=== PATIENT | male | born 1955 | race Caucasian/White ===

== ENCOUNTER 2018-02-15 18:36 | Inpatient (IN) | payer SELFPAY ==
[~2018-02-15] VITALS: Ht 175.3 cm; Wt 193.7 kg
[2018-02-15] MEDS ORDERED: LEVEMIR100 U/M1 SC (22:02)
[2018-02-15 22:54] LABS: HEMATOCRIT 27.1 % (42.0-54.0)
[2018-02-15 23:00] LABS: HEMOGLOBIN 7.3 g/dL (13.5-17.5)
[2018-02-16 00:51] VITALS: BP 215/101; BMI 48.1; BMI 63.2
[2018-02-16 04:30] VITALS: BP 150/65
[2018-02-16 12:36] LABS: BASOPHILS 0.3 % (0-2); EOSINOPHILS 0.7 % (0-7); IMMATURE GRANULOCYTES 0.9 % (0-5); LYMPHOCYTES 7.8 % (15-50); MCH 21.4 pg (26.0-34.0); MCHC 27.5 g/dL (31.0-37.0); MCV 77.7 fL (80.0-100.0); MEAN PLATELET VOLUME 9.8 fL (7.4-10.4); MONOCYTES 6.3 % (2-11); PLATELET COUNT 363 10x3/uL (130-400); RBC 4.21 10x6/uL (4.20-6.10); WBC 15.2 10x3/uL (4.8-10.8)
[2018-02-16 12:37] LABS: HEMATOCRIT 32.7 % (42.0-54.0)
[2018-02-16 13:07] LABS: ALBUMIN 2.8 g/dL (3.4-5.0); ALKALINE PHOSPHATASE 86 U/L (46-116); ALT (SGPT) 8 U/L (10-68); BILIRUBIN - TOTAL 0.42 mg/dL (0.2-1.3); CALC OSMOLALITY 280 mosm/kg (275-300); CALCIUM 8.4 mg/dL (8.5-10.1); CARBON DIOXIDE 30.9 mmol/L (21.0-32.0); CHLORIDE - SERUM 104 mmol/L (98-107); CREATININE - SERUM 0.7 mg/dL (0.6-1.3); FERRITIN 8 ng/mL (3-244); GLUCOSE 137 mg/dL (74-106); PROTEIN - SERUM 6.4 g/dL (6.4-8.2); SODIUM 139 mmol/L (136-145); UREA NITROGEN 14 mg/dL (7-18); eGFR NON AFRICAN AMERICAN > 90 mL/min (90-120)
[2018-02-16 13:17] LABS: APTT 26.7 SECONDS (22.8-39.4); INR 1.13 (0.85-1.17); PROTIME 14.1 SECONDS (11.6-15.0)
[2018-02-16 13:32] VITALS: BP 177/80
[2018-02-16 14:34] VITALS: BMI 63.0
[2018-02-16 15:32] VITALS: Ht 175.3 cm; Wt 193.7 kg
[2018-02-16 18:27] LABS: % SATURATION 11 % (15-55); IRON 34 ug/dl (35-150); TOTAL IRON BIND CAPACITY 295 ug/dl (260-445); UNSAT IRON BIND CAPACITY 261 ug/dl (150-375)
[2018-02-16 18:59] VITALS: BP 214/89
[2018-02-16 20:07] VITALS: BP 194/94
[2018-02-17 04:25] VITALS: BP 243/102
[2018-02-17 06:20] LABS: BASOPHILS 0.3 % (0-2); EOSINOPHILS 0.5 % (0-7); HEMATOCRIT 34.2 % (42.0-54.0); HEMOGLOBIN 9.5 g/dL (13.5-17.5); IMMATURE GRANULOCYTES 0.7 % (0-5); LYMPHOCYTES 7.8 % (15-50); MCH 21.4 pg (26.0-34.0); MCHC 27.8 g/dL (31.0-37.0); MEAN PLATELET VOLUME 10.4 fL (7.4-10.4); MONOCYTES 6.8 % (2-11); NEUTROPHILS 83.9 % (40-80); PLATELET COUNT 403 10x3/uL (130-400); RBC 4.44 10x6/uL (4.20-6.10); WBC 15.7 10x3/uL (4.8-10.8)
[2018-02-17 06:53] LABS: AMYLASE - SERUM 21 U/L (25-115); CALCIUM 8.5 mg/dL (8.5-10.1); CARBON DIOXIDE 30.5 mmol/L (21.0-32.0); CHLORIDE - SERUM 102 mmol/L (98-107); CREATININE - SERUM 0.8 mg/dL (0.6-1.3); LIPASE 81 U/L (73-393); POTASSIUM - SERUM 3.8 mmol/L (3.5-5.1); SODIUM 139 mmol/L (136-145); eGFR NON AFRICAN AMERICAN > 90 mL/min (90-120)
[2018-02-17 06:56] LABS: CALC OSMOLALITY 281 mosm/kg (275-300); GLUCOSE 192 mg/dL (74-106); UREA NITROGEN 9 mg/dL (7-18)
[2018-02-17 08:59] VITALS: BP 189/91
[2018-02-17 16:15] VITALS: BP 193/94
[2018-02-17 19:56] VITALS: BP 186/94
[2018-02-18 04:30] VITALS: BP 208/88
[2018-02-18 06:21] LABS: BASOPHILS 0.2 % (0-2); EOSINOPHILS 0.6 % (0-7); HEMATOCRIT 32.9 % (42.0-54.0); IMMATURE GRANULOCYTES 1.4 % (0-5); LYMPHOCYTES 7.1 % (15-50); MCH 21.5 pg (26.0-34.0); MCHC 27.4 g/dL (31.0-37.0); MCV 78.5 fL (80.0-100.0); MEAN PLATELET VOLUME 10.4 fL (7.4-10.4); MONOCYTES 6.2 % (2-11); NEUTROPHILS 84.5 % (40-80); PLATELET COUNT 368 10x3/uL (130-400); RBC 4.19 10x6/uL (4.20-6.10); RDW 16.4 % (11.5-14.5); WBC 17.7 10x3/uL (4.8-10.8)
[2018-02-18 06:35] LABS: CALC OSMOLALITY 284 mosm/kg (275-300); CALCIUM 8.3 mg/dL (8.5-10.1); CARBON DIOXIDE 31.7 mmol/L (21.0-32.0); CHLORIDE - SERUM 103 mmol/L (98-107); CREATININE - SERUM 0.6 mg/dL (0.6-1.3); LIPASE 56 U/L (73-393); POTASSIUM - SERUM 4.3 mmol/L (3.5-5.1); SODIUM 143 mmol/L (136-145); UREA NITROGEN 7 mg/dL (7-18); eGFR NON AFRICAN AMERICAN > 90 mL/min (90-120)
[2018-02-18 06:50] LABS: GLUCOSE 131 mg/dL (74-106)
[2018-02-18 09:52] VITALS: BP 165/99
[2018-02-18 13:27] VITALS: BP 157/89
[2018-02-18 18:09] VITALS: BP 170/77
[2018-02-18 21:12] VITALS: BP 161/88
[2018-02-19 04:01] VITALS: BP 198/86
[2018-02-19 07:26] LABS: BASOPHILS 0.1 % (0-2); EOSINOPHILS 1.9 % (0-7); HEMATOCRIT 31.7 % (42.0-54.0); HEMOGLOBIN 8.6 g/dL (13.5-17.5); IMMATURE GRANULOCYTES 1.3 % (0-5); LYMPHOCYTES 7.1 % (15-50); MCH 21.2 pg (26.0-34.0); MCHC 27.1 g/dL (31.0-37.0); MCV 78.3 fL (80.0-100.0); MEAN PLATELET VOLUME 10.2 fL (7.4-10.4); MONOCYTES 7.7 % (2-11); NEUTROPHILS 81.9 % (40-80); PLATELET COUNT 369 10x3/uL (130-400); RBC 4.05 10x6/uL (4.20-6.10); RDW 16.9 % (11.5-14.5); WBC 16.3 10x3/uL (4.8-10.8)
[2018-02-19 07:37] LABS: CALC OSMOLALITY 279 mosm/kg (275-300); CALCIUM 8.3 mg/dL (8.5-10.1); CARBON DIOXIDE 32.9 mmol/L (21.0-32.0); CHLORIDE - SERUM 102 mmol/L (98-107); CREATININE - SERUM 0.6 mg/dL (0.6-1.3); GLUCOSE 145 mg/dL (74-106); POTASSIUM - SERUM 4.1 mmol/L (3.5-5.1); SODIUM 140 mmol/L (136-145); TRIGLYCERIDE 57 mg/dL (30-200); UREA NITROGEN 8 mg/dL (7-18); eGFR NON AFRICAN AMERICAN > 90 mL/min (90-120)
[2018-02-19 08:31] VITALS: BP 164/92
[2018-02-19 12:32] VITALS: BP 155/88
[2018-02-19 16:13] VITALS: BP 161/83
[2018-02-19 22:35] VITALS: BP 187/102
[2018-02-20 07:12] LABS: BASOPHILS 0.3 % (0-2); EOSINOPHILS 0.8 % (0-7); HEMATOCRIT 33.9 % (42.0-54.0); HEMOGLOBIN 9.4 g/dL (13.5-17.5); IMMATURE GRANULOCYTES 1.5 % (0-5); LYMPHOCYTES 5.5 % (15-50); MCHC 27.7 g/dL (31.0-37.0); MCV 79.2 fL (80.0-100.0); MEAN PLATELET VOLUME 10.3 fL (7.4-10.4); MONOCYTES 6.7 % (2-11); NEUTROPHILS 85.2 % (40-80); PLATELET COUNT 424 10x3/uL (130-400); RBC 4.28 10x6/uL (4.20-6.10); RDW 17.3 % (11.5-14.5); WBC 18.1 10x3/uL (4.8-10.8)
[2018-02-20 07:35] LABS: CALC OSMOLALITY 281 mosm/kg (275-300); CALCIUM 8.7 mg/dL (8.5-10.1); CARBON DIOXIDE 32.2 mmol/L (21.0-32.0); CHLORIDE - SERUM 102 mmol/L (98-107); CREATININE - SERUM 0.8 mg/dL (0.6-1.3); GLUCOSE 174 mg/dL (74-106); POTASSIUM - SERUM 3.8 mmol/L (3.5-5.1); PRO BNP 1155 pg/mL (0-125); SODIUM 140 mmol/L (136-145); UREA NITROGEN 9 mg/dL (7-18); eGFR NON AFRICAN AMERICAN > 90 mL/min (90-120)
[2018-02-20 08:02] VITALS: BP 192/94
[2018-02-20 12:14] VITALS: BP 179/89
[2018-02-20 15:42] VITALS: BP 155/78
[2018-02-20 20:43] VITALS: BP 195/105
[2018-02-21 00:10] VITALS: BP 155/70
[2018-02-21 05:12] VITALS: BP 169/84
[2018-02-21 06:01] LABS: BASOPHILS 0.4 % (0-2); EOSINOPHILS 0.6 % (0-7); HEMOGLOBIN 9.2 g/dL (13.5-17.5); IMMATURE GRANULOCYTES 1.3 % (0-5); LYMPHOCYTES 8.2 % (15-50); MCH 21.8 pg (26.0-34.0); MCHC 28.8 g/dL (31.0-37.0); MEAN PLATELET VOLUME 10.4 fL (7.4-10.4); MONOCYTES 7.5 % (2-11); RBC 4.22 10x6/uL (4.20-6.10); RDW 17.8 % (11.5-14.5); WBC 14.8 10x3/uL (4.8-10.8)
[2018-02-21 06:12] LABS: MCV 75.8 fL (80.0-100.0); PLATELET COUNT 321 10x3/uL (130-400)
[2018-02-21 06:29] LABS: CALC OSMOLALITY 281 mosm/kg (275-300); CALCIUM 8.4 mg/dL (8.5-10.1); CARBON DIOXIDE 35.1 mmol/L (21.0-32.0); CHLORIDE - SERUM 101 mmol/L (98-107); CREATININE - SERUM 0.6 mg/dL (0.6-1.3); GLUCOSE 142 mg/dL (74-106); POTASSIUM - SERUM 3.8 mmol/L (3.5-5.1); SODIUM 141 mmol/L (136-145); UREA NITROGEN 9 mg/dL (7-18); eGFR NON AFRICAN AMERICAN > 90 mL/min (90-120)
[2018-02-21 09:49] VITALS: BP 163/74
[2018-02-21 14:56] VITALS: BP 126/96
[2018-02-21 17:32] VITALS: BP 175/91
[2018-02-21 20:38] VITALS: BP 174/84
[2018-02-22 04:06] VITALS: BP 146/72
[2018-02-22 06:58] LABS: BASOPHILS 0.2 % (0-2); EOSINOPHILS 0.5 % (0-7); HEMATOCRIT 33.1 % (42.0-54.0); HEMOGLOBIN 9.2 g/dL (13.5-17.5); IMMATURE GRANULOCYTES 0.6 % (0-5); MCH 21.5 pg (26.0-34.0); MCHC 27.8 g/dL (31.0-37.0); MCV 77.3 fL (80.0-100.0); MEAN PLATELET VOLUME 9.9 fL (7.4-10.4); MONOCYTES 7.4 % (2-11); NEUTROPHILS 85.3 % (40-80); PLATELET COUNT 389 10x3/uL (130-400); RBC 4.28 10x6/uL (4.20-6.10); RDW 17.9 % (11.5-14.5); WBC 15.2 10x3/uL (4.8-10.8)
[2018-02-22 07:12] LABS: ALBUMIN 2.6 g/dL (3.4-5.0); ALKALINE PHOSPHATASE 75 U/L (46-116); ALT (SGPT) 10 U/L (10-68); AMYLASE - SERUM 8 U/L (25-115); BILIRUBIN - TOTAL 0.25 mg/dL (0.2-1.3); CALC OSMOLALITY 281 mosm/kg (275-300); CALCIUM 8.5 mg/dL (8.5-10.1); CARBON DIOXIDE 38.1 mmol/L (21.0-32.0); CHLORIDE - SERUM 99 mmol/L (98-107); CREATININE - SERUM 0.5 mg/dL (0.6-1.3); GLUCOSE 150 mg/dL (74-106); LIPASE 54 U/L (73-393); POTASSIUM - SERUM 3.4 mmol/L (3.5-5.1); PROTEIN - SERUM 6.4 g/dL (6.4-8.2); SODIUM 141 mmol/L (136-145); eGFR NON AFRICAN AMERICAN > 90 mL/min (90-120)
[2018-02-22 07:13] LABS: UREA NITROGEN 6 mg/dL (7-18)
[2018-02-22 09:02] VITALS: BP 213/102
[2018-02-22] MEDS ORDERED: HUMALOG 30100 UNITS/ SC (12:55)
[2018-02-22] MEDS ORDERED: GLUCAGEN1 MG/VIAL SC (12:56)
[2018-02-22] MEDS ORDERED: GLUCAGEN1 MG/VIAL IM (12:56)
[2018-02-22] MEDS ORDERED: SODIUM CL 0.91000 ML IV (12:56)
[2018-02-22] MEDS ORDERED: ONDANSETRON4 MG/2 M3 IV (12:56)
[2018-02-22] MEDS ORDERED: PROTONIX40 MG PO (12:56)
[2018-02-22] MEDS ORDERED: CARAFATE1 G/10 ML PO (12:56)
[2018-02-22] MEDS ORDERED: HYDRALAZINE20 MG/ML IV (12:56)
[2018-02-22 17:08] VITALS: BP 220/107
== END 2018-02-22 17:30 | disposition short-term general hospital (02) | DRG 374 ==
LOC: D.MS 18:36
PROVIDERS: Emergency Medicine; Internal Medicine Gastroenterology; Internal Medicine Nephrology
PROC: 0DB28ZX Excision of Middle Esophagus, Via Natural or Artificial Opening Endoscopic, Diagnostic (ICD-10-PCS; 2018-02-16)
PROC: 0DB38ZX Excision of Lower Esophagus, Via Natural or Artificial Opening Endoscopic, Diagnostic (ICD-10-PCS; principal; 2018-02-16 14:00)
DX: C15.5 Malignant neoplasm of lower third of esophagus (principal); R53.2 Functional quadriplegia; D62 Acute posthemorrhagic anemia; Z68.44 Body mass index [BMI] 60.0-69.9, adult; I89.0 Lymphedema, not elsewhere classified; E66.01 Morbid (severe) obesity due to excess calories; E11.9 Type 2 diabetes mellitus without complications; I10 Essential (primary) hypertension; J44.9 Chronic obstructive pulmonary disease, unspecified; K21.9 Gastro-esophageal reflux disease without esophagitis; K29.70 Gastritis, unspecified, without bleeding; K76.9 Liver disease, unspecified; K43.9 Ventral hernia without obstruction or gangrene